=== PATIENT | male | born 1985 | race Hispanic/Latino ===

== ENCOUNTER 2021-03-18 08:00 | Outpatient (RCR) | payer OTHER ==
[~2021-03-18 08:00] MED LIST: ACETAMINOPHEN 1000 MG/100 ML 100 ML IV ONE; BUPIVACAINE HCL 0.5% INJ 30 ML VIAL INJ ONE
== END 2021-03-19 ==
LOC: OT 08:00
PROVIDERS: ATTEND Specialist
DX: S29.011A Strain of muscle and tendon of front wall of thorax, initial encounter (principal); S46.112A Strain of muscle, fascia and tendon of long head of biceps, left arm, initial encounter; M75.82 Other shoulder lesions, left shoulder
CPT/HCPCS: 97010 ×4; 97110 ×8; 97165; J0131

== ENCOUNTER 2021-04-15 09:00 | Outpatient (RCR) | payer OTHER | END 2021-04-19 | LOC: OT 09:00 | PROVIDERS: ATTEND Specialist | DX: S29.011A Strain of muscle and tendon of front wall of thorax, initial encounter (principal); S46.112A Strain of muscle, fascia and tendon of long head of biceps, left arm, initial encounter; M75.82 Other shoulder lesions, left shoulder ==

== ENCOUNTER 2021-05-18 07:30 | Outpatient (RCR) | payer OTHER | END 2021-05-19 | LOC: OT 07:30 | PROVIDERS: ATTEND Specialist | DX: S29.011A Strain of muscle and tendon of front wall of thorax, initial encounter (principal); M75.82 Other shoulder lesions, left shoulder; S46.112A Strain of muscle, fascia and tendon of long head of biceps, left arm, initial encounter ==

== ENCOUNTER 2021-05-20 08:11 | Outpatient (RCR) | payer OTHER | END 2021-06-19 | LOC: OT 08:11 | PROVIDERS: ATTEND Specialist | DX: S29.011A Strain of muscle and tendon of front wall of thorax, initial encounter (principal); S46.112A Strain of muscle, fascia and tendon of long head of biceps, left arm, initial encounter; M75.82 Other shoulder lesions, left shoulder ==